=== PATIENT | male | born 1960 | race African-American/Black ===

== ENCOUNTER 2016-11-13 15:54 | Emergency (ER) | payer SELFPAY ==
[~2016-11-13] VITALS: Ht 162.6 cm; Wt 72.6 kg
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
[2016-11-13] MEDS ORDERED: DIPHTH,PERTUSS(ACELL),TET TOX 0.5 ML DISP.SYRIN. VAX IM ONE (16:40)
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
[2016-11-13 17:28] VITALS: BP 170/110
== END 2016-11-13 17:43 | disposition home or self-care (01) ==
LOC: ER 15:54
DX: S01.01XA Laceration without foreign body of scalp, initial encounter (principal); I10 Essential (primary) hypertension; V89.2XXA Person injured in unspecified motor-vehicle accident, traffic, initial encounter; Y93.89 Activity, other specified; Y99.8 Other external cause status; Y92.410 Unspecified street and highway as the place of occurrence of the external cause
CPT/HCPCS: 70450; 72125; 99284-25